=== PATIENT | male | born 1960 | race Caucasian/White ===

== ENCOUNTER 2019-05-02 14:24 | Outpatient (CLI) | payer BC, SELFPAY ==
--- NOTE | 2019-05-02 13:49 | DI.RAD_ITS ---
EXAM: XR KNEE LT 2V AP,LAT INDICATION: KNEE PAIN. COMPARISON: LEFT KNEE 3 VIEW COMPLETE from 09/07/2016 TECHNIQUE: 2D digital imaging was performed. FINDINGS: There is mild narrowing and periarticular spurring in the medial femorotibial joint space. There is mild spurring at the posterior patella. The joint spaces are otherwise well maintained. No acute fr acture or dislocation is identified. Since the prior examination, there is an orthopedic screw now s een in the lateral femoral condyle. The soft tissues are unremarkable. IMPRESSION: Mild degenerative changes of the left knee.
--- NOTE | 2019-05-02 13:49 | DI.RAD_ITS ---
EXAM: XR KNEE RT 3V AP,LAT,FELIX INDICATION: KNEE PAIN. COMPARISON: There are no priors for comparison. TECHNIQUE: 2D digital imaging was performed. FINDINGS: Small osteophytes are seen at the posterior patella. The joint spaces are otherwise well maintained. There are enthesophytes at the superior and inferior patella. The bones are normally mineralized. No acute fracture or dislocation is present. The soft tissues are unremarkable. IMPRESSION: Mild degenerative changes of the right knee.
== END 2019-05-02 14:44 ==
PROVIDERS: PCP Family Medicine; Visit Provider Student in an Organized Health Care Education/Training Program
DX: M25.561 Pain in right knee (principal); M25.562 Pain in left knee; M17.0 Bilateral primary osteoarthritis of knee
CPT/HCPCS: 73562; 73560